=== PATIENT | female | born 1945 | race Caucasian/White ===

== ENCOUNTER 2022-03-25 10:26 | Day surgery (SDC) | payer MEDICARE, BC ==
[~2022-03-25] VITALS: Ht 171.4 cm; Wt 72.6 kg
[~2022-03-25 10:26] MED LIST: RINGERS SOLUTION,LACTATED 1,000 ML IV ONE; VANCOMYCIN 1GM/WATER(PEG/NADA) 200 ML IV ONE
[2022-03-25] MEDS ORDERED: GLYCOPYRROLATE 0.2 MG/ML VIAL IM ONE (10:27)
[2022-03-25] MEDS ORDERED: ONDANSETRON HCL 4 MG/2 ML VIAL IVP ONE (10:27)
[2022-03-25] MEDS ORDERED: FentaNYL CITRATE PF 100 MCG/2 ML VIAL IVP ONE (10:27)
[2022-03-25] MEDS ORDERED: LIDOCAINE/PF 2% 5 ML VIAL CAUDAL ONE (10:27)
[2022-03-25] MEDS ORDERED: ROCURONIUM BROMIDE 10 MG/ML 5 ML VIAL IV ONE (10:27)
[2022-03-25] MEDS ORDERED: DEXAMETHASONE SOD PHOS 4 MG/ML VIAL IVP ONE (10:27)
[2022-03-25] MEDS ORDERED: PROPOFOL 1% 20 ML VIAL IVP ONE (10:27)
[2022-03-25 10:52] LABS: COVID AG,FIA SOURCE NASOPHARYNGEAL
[2022-03-25 11:13] LABS: BASOPHILS % (AUTO) 0.4 % (0.0-2.0); EOSINOPHILS % (AUTO) 0.8 % (1.0-6.0); HEMATOCRIT 42.2 % (36-46); LYMPHOCYTES # (AUTO) 1.2 K/uL (1.0-4.8); LYMPHOCYTES % (AUTO) 18.5 % (22.0-44.0); MEAN CORPUSCULAR HEMOGLOBIN 31.6 pg (26.0-34.0); MEAN CORPUSCULAR HGB CONC 33.2 G/dL (31.0-37.0); MEAN CORPUSCULAR VOLUME 95 fL (80-100); MONOCYTES # (AUTO) 0.5 K/uL (0.1-1.0); MONOCYTES % (AUTO) 7.8 % (2.0-9.0); NEUTROPHILS # (AUTO) 4.6 K/uL (1.8-7.7); NEUTROPHILS % (AUTO) 72.5 % (40.0-70.0); PLATELET COUNT (AUTO) 276 K/uL (150-450); RED BLOOD CELL COUNT(AUTO) 4.43 MIL/uL (4.00-5.20); RED CELL DISTRIBUTION WIDTH 13.8 % (11.5-14.5)
[2022-03-25 11:23] LABS: HEMOGLOBIN A1C 5.5 % (3.8-5.6)
[2022-03-25 11:24] LABS: PROTHROMBIN TIME 10.4 SEC (9.4-11.6)
[2022-03-25] MEDS ORDERED: VANCOMYCIN 1GM/WATER(PEG/NADA) 200 ML IV ONE (12:00)
[2022-03-25] MEDS ORDERED: LIDOCAINE/PF 1% 30 ML VIAL ONE (12:33)
[2022-03-25] MEDS ORDERED: BUPIVACAINE HCL/PF 0.25% 30 ML VIAL ONE (12:33)
[2022-03-25 12:40] LABS: ALANINE AMINOTRANSFERASE 31 U/L (12-78); ALBUMIN 4.5 g/dL (3.4-5.0); ALKALINE PHOSPHATASE 92 U/L (46-116); ASPARTATE AMINOTRANSFERASE 26 U/L (15-37); BILIRUBIN,TOTAL 0.7 mg/dL (0.1-1.0); C-REACTIVE PROTEIN QUANT 0.48 mg/dL (0.00-0.30); CALCIUM, TOTAL 9.6 mg/dL (8.8-10.5); CARBON DIOXIDE 24 mmol/L (22-29); CREATININE 0.82 mg/dL (0.60-1.30); GLUCOSE,RANDOM 100 mg/dL (70-110); TOTAL PROTEIN, SERUM 8.2 g/dL (6.4-8.2); UREA NITROGEN, BLOOD 18 mg/dL (7-18)
[2022-03-25 12:48] LABS: ERYTHROCYTE SEDIMENTATION RATE 23 MM/HR (0-20)
[2022-03-25 12:55] LABS: ANION GAP 13 mmol/L (8-16); CHLORIDE 101 mmol/L (98-107); GLOMERULAR FILTR. RATE CALC > 60 mL/min (>60); POTASSIUM 3.9 mmol/L (3.5-5.1); SODIUM SERUM 138 mmol/L (136-145)
[2022-03-25] MEDS ORDERED: ACETAMINOPHEN 1000 MG/ISO-OSM 100 ML IV ONE (13:10)
[2022-03-25] MEDS ORDERED: SUGAMMADEX SODIUM 200 MG/2 ML VIAL IVP ONE (13:10)
[2022-03-25] MEDS ORDERED: VANCOMYCIN HCL 1 GM/VIAL ONE (14:04)
[2022-03-25] MEDS ORDERED: BACITRACIN 28 GM OINTMENT TP ONE (14:33)
[2022-03-25] MEDS ORDERED: FentaNYL CITRATE PF 100 MCG/2 ML VIAL ONE ×2 (15:10→15:33)
[2022-03-25] MEDS: FentaNYL CITRATE PF 100 MCG/2 ML VIAL IVP PRN ×4 (15:11→15:55)
[2022-03-25] MEDS ORDERED: HYDROmorphone HCL 2 MG/ML SYRINGE ONE (15:17)
[2022-03-25] MEDS: HYDROmorphone HCL 2 MG/ML SYRINGE IVP PRN ×2 (15:25→16:07)
[2022-03-25] MEDS ORDERED: OxyCODONE HCL/ACETAMINOPHEN 5-325 MG TABLET PO ONE (16:45)
[2022-03-25] MEDS ORDERED: OXYGEN THERAPY IH SCH (20:00)
== END 2022-03-25 18:05 | disposition home or self-care (01) ==
LOC: SURGERY 10:26
PROVIDERS: ATTEND Orthopaedic Surgery Hand Surgery
DX: S52.571A Other intraarticular fracture of lower end of right radius, initial encounter for closed fracture (principal); S52.611A Displaced fracture of right ulna styloid process, initial encounter for closed fracture; S52.201A Unspecified fracture of shaft of right ulna, initial encounter for closed fracture; W01.0XXA Fall on same level from slipping, tripping and stumbling without subsequent striking against object, initial encounter; Y93.89 Activity, other specified; Y92.89 Other specified places as the place of occurrence of the external cause; Y99.8 Other external cause status; Z79.01 Long term (current) use of anticoagulants; Z79.899 Other long term (current) drug therapy; Z88.0 Allergy status to penicillin; Z88.6 Allergy status to analgesic agent; Z88.8 Allergy status to other drugs, medicaments and biological substances; Z20.822 Contact with and (suspected) exposure to COVID-19; Z88.2 Allergy status to sulfonamides
CPT/HCPCS: 25609; 25652; 25545; 80053; 83036; 85025; 85610; 85651; 85730; 86140; 36415; 93005; 71045; 87426; C1713; J3490 ×5; J2704; J1100; J3010; J1170; J2405; J3370; Q9967; J7120; J0131; C9803; C1716; Z7610